=== PATIENT | male | born 1930 | race Caucasian/White ===

== ENCOUNTER 2018-01-24 13:39 | Day surgery (SDC) | payer MEDICARE, BC ==
[2018-01-23 11:31] LABS: BASOPHILS # (AUTO) 0.08 x10^3/uL (0-0.1); BASOPHILS % (AUTO) 1 % (0-1); EOSINOPHILS % (AUTO) 3 % (1-7); LYMPHOCYTES # (AUTO) 1.28 x10^3/uL (1-3.4); LYMPHOCYTES % (AUTO) 19 % (22-44); MD NO; MEAN CORPUSCULAR HEMOGLOBIN 28.7 pg (27.5-34.5); MEAN CORPUSCULAR HGB CONC 32.3 g/dL (33.2-36.2); MEAN CORPUSCULAR VOLUME 88.7 fL (81-97); MEAN PLATELET VOLUME 9.9 fL (7.4-10.4); MONOCYTES # (AUTO) 0.54 x10^3/uL (0.2-0.8); MONOCYTES % (AUTO) 8 % (2-9); NEUTROPHILS # (AUTO) 4.79 x10^3/uL (1.8-6.8); NEUTROPHILS % (AUTO) 70 % (42-75); PLATELET COUNT 170 x10^3/uL (130-400); RED BLOOD COUNT 4.28 x10^6/uL (4.38-5.82); RED CELL DISTRIBUTION WIDTH 14.1 % (9.4-14.8)
[2018-01-23 11:43] LABS: ALANINE AMINOTRANSFERASE 16 U/L (12-78); ALBUMIN 3.8 g/dL (3.4-5.0); ANION GAP 9 mmol/L (5-15); CALCIUM 8.5 mg/dL (8.5-10.1); CHLORIDE 112 mmol/L (98-107); CREATININE 3.87 mg/dL (0.7-1.3)
[2018-01-23 11:45] LABS: ALKALINE PHOSPHATASE 86 U/L (45-117); BILIRUBIN,TOTAL 0.5 mg/dL (0.2-1.0); TOTAL PROTEIN 6.8 g/dL (6.4-8.2)
[~2018-01-24] VITALS: Ht 182.9 cm; Wt 87.6 kg
[~2018-01-24 13:39] MED LIST: AMLO10TA6 PO; ASPI-496 PO; CALC0.25 PO; EZET10TA18 PO; IRON PO; LABE200T6 PO; LOSA50TA7 PO; SIMV20TA3 PO; SODI650T PO
[2018-01-24] MEDS ORDERED: LACTATED RINGERS 1,000 ML IV SCH (13:50)
[2018-01-24 14:10] VITALS: BP 163/87
[2018-01-24] MEDS ORDERED: PROTAMINE SULFATE 10 MG/ML, 5ML ONE (14:27)
[2018-01-24] MEDS ORDERED: HEPARIN 5,000 UNITS/ML, 1ML ONE (14:27)
[2018-01-24] MEDS ORDERED: SODIUM BICARBONATE 1 MEQ/ML, 50ML VIAL ONE (14:30)
[2018-01-24] MEDS ORDERED: HEPARIN 1,000 UNITS/ML, 10ML ONE (14:33)
[2018-01-24] MEDS ORDERED: LIDOCAINE-MPF 2% ,5ML ONE (14:33)
[2018-01-24] MEDS ORDERED: THROMBIN 20,000 UNIT VIAL TP ONE (14:40)
[2018-01-24] MEDS ORDERED: BUPIVACAINE/PF-EPI 0.5% 1:200K ONE (15:32)
[2018-01-24] MEDS ORDERED: LABETALOL 5MG/ML, 20ML IV PRN (18:00)
[2018-01-24] MEDS ORDERED: PROMETHAZINE 25 MG/ML, 1ML IM PRN ×2 (18:00)
[2018-01-24] MEDS ORDERED: FENTANYL PF 250 MCG/5ML ONE (18:00)
[2018-01-24] MEDS ORDERED: FENTANYL PF 100 MCG/2ML IV PRN (18:00)
[2018-01-24] MEDS ORDERED: PROMETHAZINE 12.5 MG SUPP PR PRN (18:00)
[2018-01-24] MEDS ORDERED: HYDROmorphone 2 MG/ML, 1ML IVPush PRN (18:00)
[2018-01-24] MEDS ORDERED: hydrALAzine 20 MG/ML, 1ML IV PRN (18:00)
[2018-01-24] MEDS ORDERED: ONDANSETRON ODT 8 MG PO PRN (18:00)
[2018-01-24] MEDS ORDERED: OXYcodone 5 MG/5 ML ORAL.SOL UDC PO PRN (18:00)
[2018-01-24] MEDS ORDERED: PROMETHAZINE 25 MG/ML, 1ML IV PRN (18:00)
[2018-01-24] MEDS ORDERED: PROMETHAZINE 25 MG SUPP PR PRN (18:00)
[2018-01-24] MEDS ORDERED: ONDANSETRON 2MG/ML, 2ML IV PRN (18:00)
[2018-01-24] MEDS ORDERED: PROPOFOL 10 MG/ML, 50ML ONE (18:01)
[2018-01-24] MEDS ORDERED: CEFAZOLIN 1,000 MG ONE (18:01)
[2018-01-24] MEDS ORDERED: PROPOFOL 50 ML ONE (18:02)
[2018-01-24] MEDS ORDERED: MIDAZOLAM 1 MG/ML, 2ML ONE (18:04)
[2018-01-24] MEDS ORDERED: HYDROcodone/APAP 5/325 TABLET PO PRN (19:30)
[2018-01-24] MEDS ORDERED: ONDANSETRON 2MG/ML, 2ML IVPush PRN (19:30)
[2018-01-24] MEDS ORDERED: SODIUM CHLORIDE FLUSH 10ML SYR IVF SCH (21:00)
== END 2018-01-24 21:30 | disposition home or self-care (01) ==
LOC: STAR 13:39 → 4NOR 20:19 → STAR 21:30
PROVIDERS: ATTEND Surgery
DX: I12.9 Hypertensive chronic kidney disease with stage 1 through stage 4 chronic kidney disease, or unspecified chronic kidney disease (principal); N18.4 Chronic kidney disease, stage 4 (severe); E78.5 Hyperlipidemia, unspecified; I25.10 Atherosclerotic heart disease of native coronary artery without angina pectoris; E87.5 Hyperkalemia; F17.210 Nicotine dependence, cigarettes, uncomplicated; K21.9 Gastro-esophageal reflux disease without esophagitis; Z79.82 Long term (current) use of aspirin; Z98.890 Other specified postprocedural states; Z79.899 Other long term (current) drug therapy; Z90.5 Acquired absence of kidney
CPT/HCPCS: 36415; 36821; 80053; 85025; 93005; J0690; J1644; J2250; J2704; J2720; J3010; G0378; J3490

== ENCOUNTER → 2018-03-10 | Outpatient (CLI) | payer MEDICARE, BC ==
[~2018-03-10] MED LIST changes: -AMLO10TA6 PO; +AMLO10TA8 PO; +LOSA50TA14 PO; -LOSA50TA7 PO
== END | disposition home or self-care (01) ==
LOC: CVU 08:19
PROVIDERS: ATTEND Internal Medicine Cardiovascular Disease
DX: R09.89 Other specified symptoms and signs involving the circulatory and respiratory systems (principal); E78.00 Pure hypercholesterolemia, unspecified
CPT/HCPCS: 93880

== ENCOUNTER 2018-06-02 13:28 | Inpatient (IN) | payer MEDICARE, BC ==
[~2018-06-02] VITALS: Ht 182.9 cm; Wt 83.3 kg
--- NOTE | 2018-06-02 14:27 | NUR ---
BIB BY AUGUSTO FROM [facility] WHERE HE PRESENTED FOR DIZZINESS/PALPITATION W/ STANDING. REPORTED NORMAL EKG AND TROPNIN, BNP OF 230. GIVEN 250ML OF NS AND 324 OF ASA BEFORE TRANSFER. ON ARRIVAL NO DIZZINESS/CP WITH STANDING-, VSS. EKG OBTAINED
[2018-06-02 15:01] LABS: TROPONIN I 0.082 ng/mL (0.000-0.045)
--- NOTE | 2018-06-02 15:20 | NUR ---
PATIENT CONTINUES TO DENIES DISCOMFORT INCLUDING PALPITATIONS/DIZZINESS. APPEARS WELL, VSS. LAUGHING W/ SPOUSE UPDATED ON POC (ADMIT) PATIENT VOIDED 200ML-SAMPLE LABELED AND SENT TO LAB
[2018-06-02 15:21] LABS: BASOPHILS # (AUTO) 0.03 x10^3/uL (0-0.1); BASOPHILS % (AUTO) 0 % (0-1); EOSINOPHILS # (AUTO) 0.07 x10^3/uL (0-0.4); EOSINOPHILS % (AUTO) 1 % (1-7); LYMPHOCYTES # (AUTO) 1.19 x10^3/uL (1-3.4); LYMPHOCYTES % (AUTO) 17 % (22-44); MD NO; MEAN CORPUSCULAR HEMOGLOBIN 28.6 pg (27.5-34.5); MEAN CORPUSCULAR HGB CONC 32.5 g/dL (33.2-36.2); MEAN CORPUSCULAR VOLUME 87.9 fL (81-97); MEAN PLATELET VOLUME 9.9 fL (7.4-10.4); MONOCYTES # (AUTO) 0.49 x10^3/uL (0.2-0.8); MONOCYTES % (AUTO) 7 % (2-9); NEUTROPHILS # (AUTO) 5.34 x10^3/uL (1.8-6.8); NEUTROPHILS % (AUTO) 75 % (42-75); PLATELET COUNT 171 x10^3/uL (130-400); RED BLOOD COUNT 3.97 x10^6/uL (4.38-5.82); RED CELL DISTRIBUTION WIDTH 13.1 % (9.4-14.8)
[2018-06-02] MEDS ORDERED: NITROGLYCERIN 0.4 MG BOTTLE (25 TABS) SL PRN (15:30)
[2018-06-02] MEDS ORDERED: ACETAMINOPHEN 325 MG TABLET PO PRN (15:30)
[2018-06-02 15:38] LABS: ALANINE AMINOTRANSFERASE 18 U/L (12-78); ALBUMIN 3.9 g/dL (3.4-5.0); ANION GAP 9 mmol/L (5-15); CALCIUM 8.9 mg/dL (8.5-10.1); CHLORIDE 104 mmol/L (98-107); CREATININE 5.41 mg/dL (0.7-1.3)
[2018-06-02 15:43] LABS: ALKALINE PHOSPHATASE 89 U/L (45-117); BILIRUBIN,TOTAL 0.4 mg/dL (0.2-1.0); CREATINE KINASE, TOTAL 67 U/L (39-308); TOTAL PROTEIN 6.8 g/dL (6.4-8.2)
[2018-06-02] MEDS: SODIUM BICARBONATE 650 MG TABLET PO SCH ×2 (16:00→20:08)
--- NOTE | 2018-06-02 16:57 | NUR ---
PATIENT RESTING COMFORTABLY ON GURNEY. DENIES COMPLAINTS/VSS ASKING WHEN A BED WILL BE AVAILABLE-THROUGHPUT RN TO ADDRESS UPDATED ON EFFORTS TO ATTEMPT TO GET HIM UPSTAIRS SHORTLY CALL [facility]YLE IN HAND/SIDE RAILS UP DINNER ORDERED
--- NOTE | 2018-06-02 17:14 | NUR ---
HOSPITAL BED/DINNER ORDERED FOR PATIENT
--- NOTE | 2018-06-02 18:13 | NUR ---
REPORT CALLED TO HUMAIRA RAUSCH PATIENT PLACED ON HOSPITAL BED EATING DINNER VITALS REMAIN STABLE ON LOADER UNLOADER AND CONTINUES TO DENY COMPLAINTS AT BEDSIDE UPDATED THEY ARE TO BE TRANSFERRED SHORTLY
[2018-06-02 19:11] VITALS: BP 134/64
[2018-06-02] MEDS: ATORVASTATIN 40 MG TABLET PO SCH (20:14)
[2018-06-02] MEDS ORDERED: LABETALOL 200 MG TABLET PO SCH (21:00)
[2018-06-02] MEDS ORDERED: HEPARIN 5,000 UNITS/ML, 1ML SQ SCH (21:00)
[2018-06-02 22:54] LABS: TROPONIN I 0.112 ng/mL (0.000-0.045)
[2018-06-02 22:58] LABS: CREATINE KINASE, TOTAL 63 U/L (39-308)
[2018-06-02] MEDS ORDERED: HEPARIN 5,000 UNITS/ML, 1ML IV PRN (23:30)
[2018-06-02] MEDS ORDERED: HEPARIN 25,000 UNITS/500ML PMX 500 ML IV PRN (23:30)
[2018-06-03 00:43] VITALS: BP 123/63
[2018-06-03] MEDS: SODIUM BICARBONATE 650 MG TABLET PO SCH ×4 (05:14→22:17)
[2018-06-03] MEDS: METOPROLOL TARTRATE 50 MG TABLET PO SCH (05:16)
[2018-06-03 06:57] LABS: CHOLESTEROL, TOTAL 114 mg/dL (140-239)
[2018-06-03 07:02] LABS: CHOL/HDL RATIO 2.2; HDL CHOL % 45 % (26-37); HDL CHOLESTEROL (DIRECT) 51 mg/dL (40-60); LDL CHOLESTEROL,CALCULATED 50 mg/dL (54-169); TRIGLYCERIDES 67 mg/dL (50-200); TROPONIN I 0.091 ng/mL (0.000-0.045); VLDL CHOLESTEROL 13 mg/dL (0-25)
[2018-06-03 08:55] VITALS: BP 149/70
[2018-06-03] MEDS: AMLODIPINE 10 MG TAB PO SCH (08:56)
[2018-06-03] MEDS: ISOSORBIDE MONONITRATE ER 30 MG TABLET PO SCH (08:56)
[2018-06-03] MEDS: LOSARTAN 50MG TABLET PO SCH (08:56)
[2018-06-03] MEDS: ASPIRIN 81 MG TABLET EC PO SCH (08:56)
[2018-06-03] MEDS ORDERED: REGADENOSON 0.4 MG/5 ML SYRINGE ONE (10:56)
[2018-06-03 12:45] VITALS: BP 113/61
[2018-06-03 19:32] VITALS: BP 109/63
[2018-06-03] MEDS: ATORVASTATIN 40 MG TABLET PO SCH (22:17)
[2018-06-04 02:25] VITALS: BP 116/65
[2018-06-04 05:06] LABS: ANION GAP 8 mmol/L (5-15); CALCIUM 8.4 mg/dL (8.5-10.1); CHLORIDE 101 mmol/L (98-107); CREATININE 4.19 mg/dL (0.7-1.3)
[2018-06-04 05:12] LABS: BASOPHILS # (AUTO) 0.05 x10^3/uL (0-0.1); BASOPHILS % (AUTO) 1 % (0-1); EOSINOPHILS # (AUTO) 0.13 x10^3/uL (0-0.4); EOSINOPHILS % (AUTO) 2 % (1-7); LYMPHOCYTES # (AUTO) 1.69 x10^3/uL (1-3.4); LYMPHOCYTES % (AUTO) 23 % (22-44); MD NO; MEAN CORPUSCULAR HEMOGLOBIN 28.9 pg (27.5-34.5); MEAN CORPUSCULAR HGB CONC 32.6 g/dL (33.2-36.2); MEAN CORPUSCULAR VOLUME 88.5 fL (81-97); MEAN PLATELET VOLUME 10.2 fL (7.4-10.4); MONOCYTES # (AUTO) 0.58 x10^3/uL (0.2-0.8); MONOCYTES % (AUTO) 8 % (2-9); NEUTROPHILS # (AUTO) 4.89 x10^3/uL (1.8-6.8); NEUTROPHILS % (AUTO) 67 % (42-75); PLATELET COUNT 132 x10^3/uL (130-400); RED BLOOD COUNT 3.63 x10^6/uL (4.38-5.82); RED CELL DISTRIBUTION WIDTH 12.9 % (9.4-14.8)
[2018-06-04 05:43] VITALS: BP 126/65
[2018-06-04] MEDS: SODIUM BICARBONATE 650 MG TABLET PO SCH (05:44)
[2018-06-04] MEDS: METOPROLOL TARTRATE 50 MG TABLET PO SCH (05:45)
[2018-06-04] MEDS ORDERED: SODIUM BICARBONATE 650 MG TABLET PO ONE (06:00)
[2018-06-04 09:00] VITALS: BP 100/65
[2018-06-04] MEDS ORDERED: HEPARIN 5,000 UNITS/ML, 1ML SQ SCH (09:00)
[2018-06-04] MEDS: AMLODIPINE 10 MG TAB PO SCH (09:34)
[2018-06-04] MEDS: ASPIRIN 81 MG TABLET EC PO SCH (09:35)
[2018-06-04] MEDS: LOSARTAN 50MG TABLET PO SCH (09:35)
[2018-06-04] MEDS: ISOSORBIDE MONONITRATE ER 30 MG TABLET PO SCH (09:35)
[2018-06-04] MEDS ORDERED: ISOS30TA8 PO (12:41)
[2018-06-04 14:16] VITALS: BP 100/58
[2018-06-04] MEDS ORDERED: SODIUM BICARBONATE 650 MG TABLET PO SCH (21:00)
[2018-06-05] MEDS ORDERED: SIMV20TA3 PO (19:28)
[2018-06-05] MEDS ORDERED: EZET10TA18 PO (19:28)
== END 2018-06-04 14:45 | disposition home or self-care (01) | DRG 682 ==
LOC: ED 14:13 → EDIP 15:05 → 5SO 18:30
PROVIDERS: ADMIT Internal Medicine Infectious Disease; ATTEND Internal Medicine Infectious Disease
PROC: 5A1D70Z Performance of Urinary Filtration, Intermittent, Less than 6 Hours Per Day (ICD-10-PCS; principal; 2018-06-03)
DX: I13.11 Hypertensive heart and chronic kidney disease without heart failure, with stage 5 chronic kidney disease, or end stage renal disease (principal); N18.6 End stage renal disease; C64.9 Malignant neoplasm of unspecified kidney, except renal pelvis; I25.118 Atherosclerotic heart disease of native coronary artery with other forms of angina pectoris; Z66 Do not resuscitate; Z96.659 Presence of unspecified artificial knee joint; D64.9 Anemia, unspecified; E78.5 Hyperlipidemia, unspecified; Z85.46 Personal history of malignant neoplasm of prostate; Z85.51 Personal history of malignant neoplasm of bladder; Z95.5 Presence of coronary angioplasty implant and graft; I25.2 Old myocardial infarction; Z82.49 Family history of ischemic heart disease and other diseases of the circulatory system; Z85.528 Personal history of other malignant neoplasm of kidney; Z87.891 Personal history of nicotine dependence; Z90.5 Acquired absence of kidney; Z99.2 Dependence on renal dialysis
CPT/HCPCS: 36415; 78452; 80048; 80053; 80061; 82550; 82553; 84484; 85025; 85520; 93005; 93017; 93306; 99285; G0378; J1644; J2785; A9502; C9898

== ENCOUNTER 2018-06-05 18:59 | Inpatient (IN) | payer MEDICARE, BC ==
[~2018-06-05] VITALS: Ht 182.9 cm; Wt 83.0 kg
[~2018-06-05 18:59] MED LIST changes: +ISOS30TA8 PO
--- NOTE | 2018-06-05 19:02 | NUR ---
Report from [facility].
--- NOTE | 2018-06-05 19:12 | NUR ---
87 Y/O MALE BIB AMBULANCE FROM [facility] IN [place] WITH C/O SYNCOPE. PER PATIENT "I WAS HERE FOR A STRESS TEST TUESDAY. I PASSED OUT THEN. I WAS HERE OVER THE WEEKEND AND JUST WENT HOME YESTERDAY. 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 BEDSIDE. NO C/O N/V/D, TRAUMA, CP, SOB. 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 PT HAS RIGHT CLAVICLE AREA EDEMA AND ERRYTHEMA.
--- NOTE | 2018-06-05 19:14 | NUR ---
BEDSIDE REPORT TO [facility].
[2018-06-05] MEDS ORDERED: EZET10TA18 PO (19:28)
[2018-06-05] MEDS ORDERED: SIMV20TA3 PO (19:28)
[2018-06-05 20:10] LABS: BASOPHILS # (AUTO) 0.02 x10^3/uL (0-0.1); BASOPHILS % (AUTO) 0 % (0-1); EOSINOPHILS # (AUTO) 0.08 x10^3/uL (0-0.4); EOSINOPHILS % (AUTO) 1 % (1-7); LYMPHOCYTES # (AUTO) 1.05 x10^3/uL (1-3.4); LYMPHOCYTES % (AUTO) 12 % (22-44); MD NO; MEAN CORPUSCULAR HEMOGLOBIN 28.5 pg (27.5-34.5); MEAN CORPUSCULAR HGB CONC 32.1 g/dL (33.2-36.2); MEAN CORPUSCULAR VOLUME 88.6 fL (81-97); MEAN PLATELET VOLUME 10.2 fL (7.4-10.4); MONOCYTES % (AUTO) 7 % (2-9); NEUTROPHILS # (AUTO) 6.76 x10^3/uL (1.8-6.8); NEUTROPHILS % (AUTO) 79 % (42-75); PLATELET COUNT 142 x10^3/uL (130-400); RED BLOOD COUNT 3.76 x10^6/uL (4.38-5.82); RED CELL DISTRIBUTION WIDTH 12.9 % (9.4-14.8)
--- NOTE | 2018-06-05 20:15 | NUR ---
Resting in [place]. VSS. Denies complaints. at bedside.
[2018-06-05 20:18] LABS: ALBUMIN 3.6 g/dL (3.4-5.0); ANION GAP 10 mmol/L (5-15); CALCIUM 8.8 mg/dL (8.5-10.1); CHLORIDE 101 mmol/L (98-107); CREATININE 5.69 mg/dL (0.7-1.3)
[2018-06-05 20:22] LABS: TROPONIN I 0.028 ng/mL (0.000-0.045)
--- NOTE | 2018-06-05 20:53 | NUR ---
Report to [facility].
[2018-06-05 21:48] VITALS: BP 156/63
[2018-06-05] MEDS ORDERED: BISACODYL 10 MG SUPP PR PRN (22:00)
[2018-06-05] MEDS ORDERED: ONDANSETRON ODT 4 MG PO PRN (22:00)
[2018-06-05] MEDS ORDERED: POLYETHYLENE GLYCOL 17 GM PACKET PO PRN (22:00)
[2018-06-05] MEDS: EZETIMIBE 10 MG TABLET PO SCH (23:09)
[2018-06-05] MEDS: SODIUM BICARBONATE 650 MG TABLET PO SCH (23:09)
[2018-06-05] MEDS: LOSARTAN 50MG TABLET PO SCH (23:09)
[2018-06-05] MEDS: SIMVASTATIN 20 MG TABLET PO SCH (23:09)
[2018-06-05] MEDS: SODIUM CHLORIDE FLUSH 10ML SYR IVF SCH (23:10)
[2018-06-05] MEDS: LABETALOL 200 MG TABLET PO SCH (23:11)
[2018-06-05] MEDS: ACETAMINOPHEN 325 MG TABLET PO PRN (23:20)
[2018-06-06] VITALS (9 sets, daily range): BP systolic 77–139; BP diastolic 42–65
[2018-06-06 05:53] LABS: BASOPHILS # (AUTO) 0.02 x10^3/uL (0-0.1); BASOPHILS % (AUTO) 0 % (0-1); EOSINOPHILS # (AUTO) 0.07 x10^3/uL (0-0.4); EOSINOPHILS % (AUTO) 1 % (1-7); LYMPHOCYTES # (AUTO) 1.66 x10^3/uL (1-3.4); LYMPHOCYTES % (AUTO) 18 % (22-44); MD NO; MEAN CORPUSCULAR HEMOGLOBIN 29.8 pg (27.5-34.5); MEAN CORPUSCULAR HGB CONC 33.7 g/dL (33.2-36.2); MEAN CORPUSCULAR VOLUME 88.4 fL (81-97); MEAN PLATELET VOLUME 10.3 fL (7.4-10.4); MONOCYTES # (AUTO) 0.85 x10^3/uL (0.2-0.8); MONOCYTES % (AUTO) 9 % (2-9); NEUTROPHILS # (AUTO) 6.53 x10^3/uL (1.8-6.8); NEUTROPHILS % (AUTO) 72 % (42-75); PLATELET COUNT 139 x10^3/uL (130-400); RED CELL DISTRIBUTION WIDTH 13.1 % (9.4-14.8)
[2018-06-06 06:01] LABS: ALANINE AMINOTRANSFERASE 16 U/L (12-78); ALBUMIN 3.5 g/dL (3.4-5.0); ANION GAP 11 mmol/L (5-15); CALCIUM 8.6 mg/dL (8.5-10.1); CHLORIDE 101 mmol/L (98-107); CREATININE 5.76 mg/dL (0.7-1.3)
[2018-06-06 06:03] LABS: ALKALINE PHOSPHATASE 81 U/L (45-117); BILIRUBIN,TOTAL 0.5 mg/dL (0.2-1.0); TOTAL PROTEIN 6.3 g/dL (6.4-8.2)
[2018-06-06] MEDS: LABETALOL 200 MG TABLET PO SCH ×2 (09:00→21:35)
[2018-06-06] MEDS ORDERED: AMLODIPINE 10 MG TAB PO SCH (09:00)
[2018-06-06] MEDS ORDERED: LOSARTAN 50MG TABLET PO SCH (09:00)
[2018-06-06] MEDS: SODIUM BICARBONATE 650 MG TABLET PO SCH ×2 (09:20→21:34)
[2018-06-06] MEDS: LOSARTAN 50MG TABLET PO SCH (09:21)
[2018-06-06] MEDS: SENNA/DOCUSATE TABLET PO SCH (09:21)
[2018-06-06] MEDS: CALCITRIOL 0.25 MCG CAPSULE PO SCH (09:21)
[2018-06-06] MEDS: SODIUM CHLORIDE FLUSH 10ML SYR IVF SCH ×2 (09:21→21:36)
[2018-06-06] MEDS: ASPIRIN 81 MG TABLET EC PO SCH (09:21)
[2018-06-06] MEDS: ACETAMINOPHEN 325 MG TABLET PO PRN ×2 (13:48→21:35)
[2018-06-06] MEDS: EZETIMIBE 10 MG TABLET PO SCH (21:34)
[2018-06-06] MEDS: SIMVASTATIN 20 MG TABLET PO SCH (21:35)
[2018-06-07] VITALS (9 sets, daily range): BP systolic 77–138; BP diastolic 48–78
[2018-06-07] MEDS: ACETAMINOPHEN 325 MG TABLET PO PRN (03:18)
[2018-06-07 06:25] LABS: ANION GAP 8 mmol/L (5-15); BASOPHILS # (AUTO) 0.03 x10^3/uL (0-0.1); BASOPHILS % (AUTO) 0 % (0-1); CALCIUM 8.4 mg/dL (8.5-10.1); CHLORIDE 101 mmol/L (98-107); EOSINOPHILS % (AUTO) 1 % (1-7); LYMPHOCYTES # (AUTO) 1.53 x10^3/uL (1-3.4); LYMPHOCYTES % (AUTO) 18 % (22-44); MD NO; MEAN CORPUSCULAR HEMOGLOBIN 30.2 pg (27.5-34.5); MEAN CORPUSCULAR HGB CONC 34.1 g/dL (33.2-36.2); MEAN CORPUSCULAR VOLUME 88.6 fL (81-97); MEAN PLATELET VOLUME 11.1 fL (7.4-10.4); MONOCYTES # (AUTO) 0.86 x10^3/uL (0.2-0.8); MONOCYTES % (AUTO) 10 % (2-9); NEUTROPHILS # (AUTO) 6.07 x10^3/uL (1.8-6.8); NEUTROPHILS % (AUTO) 71 % (42-75); PLATELET COUNT 120 x10^3/uL (130-400); RED BLOOD COUNT 3.47 x10^6/uL (4.38-5.82); RED CELL DISTRIBUTION WIDTH 13.1 % (9.4-14.8)
[2018-06-07 06:26] LABS: CREATININE 4.51 mg/dL (0.7-1.3)
[2018-06-07] MEDS: SODIUM CHLORIDE FLUSH 10ML SYR IVF SCH ×2 (09:00→21:50)
[2018-06-07] MEDS ORDERED: LOSARTAN 50MG TABLET PO SCH (09:00)
[2018-06-07] MEDS ORDERED: AMLODIPINE 10 MG TAB PO SCH (09:00)
[2018-06-07] MEDS: SENNA/DOCUSATE TABLET PO SCH (12:10)
[2018-06-07] MEDS: CALCITRIOL 0.25 MCG CAPSULE PO SCH (12:11)
[2018-06-07] MEDS: LABETALOL 200 MG TABLET PO SCH (12:11)
[2018-06-07] MEDS: ASPIRIN 81 MG TABLET EC PO SCH (12:11)
[2018-06-07] MEDS ORDERED: LABETALOL 100 MG TABLET PO SCH (16:00)
[2018-06-07] MEDS: MIDODRINE 5 MG TABLET PO SCH ×2 (16:18→21:49)
[2018-06-07] MEDS: SODIUM CHLORIDE 0.9% 500 ML IV SCH ×2 (16:30→21:51)
[2018-06-07] MEDS: METOPROLOL TARTRATE 25 MG TABLET PO SCH (17:09)
[2018-06-07] MEDS: EZETIMIBE 10 MG TABLET PO SCH (21:49)
[2018-06-07] MEDS: SIMVASTATIN 20 MG TABLET PO SCH (21:49)
[2018-06-08 01:31] VITALS: BP 153/61
[2018-06-08] MEDS: SODIUM CHLORIDE 0.9% 500 ML IV SCH (02:56)
[2018-06-08 05:59] VITALS: BP 147/67
[2018-06-08] MEDS: METOPROLOL TARTRATE 25 MG TABLET PO SCH (06:04)
[2018-06-08 06:49] VITALS: BP 156/68
[2018-06-08] MEDS ORDERED: LOSARTAN 25MG TABLET PO SCH (09:00)
[2018-06-08] MEDS ORDERED: GUAIFENESIN 200 MG TABLET PO SCH (09:00)
[2018-06-08] MEDS: CALCITRIOL 0.25 MCG CAPSULE PO SCH (10:00)
[2018-06-08] MEDS: SENNA/DOCUSATE TABLET PO SCH (10:00)
[2018-06-08] MEDS: ASPIRIN 81 MG TABLET EC PO SCH (10:00)
[2018-06-08] MEDS: HEPARIN 5,000 UNITS/ML, 1ML SQ SCH ×2 (10:00→17:00)
[2018-06-08] MEDS: SODIUM CHLORIDE FLUSH 10ML SYR IVF SCH (10:00)
[2018-06-08 13:23] VITALS: BP 133/68
[2018-06-08 13:24] VITALS: BP_SYST 121; BP_SYST 122; BP_DIAS 55; BP_DIAS 56
[2018-06-08] MEDS ORDERED: CARV3.1212 PO (14:41)
[2018-06-08] MEDS ORDERED: CARVEDILOL 3.125 MG TABLET PO SCH (18:00)
== END 2018-06-08 17:10 | disposition home or self-care (01) | DRG 73 ==
LOC: ED 19:47 → EDIP 20:22 → 4EST 21:36 → DCLOUNGE 06-08 17:05
PROVIDERS: ADMIT Family Medicine; ATTEND Family Medicine
PROC: 5A1D70Z Performance of Urinary Filtration, Intermittent, Less than 6 Hours Per Day (ICD-10-PCS; principal; 2018-06-06)
PROC: 5A1D70Z Performance of Urinary Filtration, Intermittent, Less than 6 Hours Per Day (ICD-10-PCS; 2018-06-07)
DX: G90.8 Other disorders of autonomic nervous system (principal); N18.6 End stage renal disease; E44.1 Mild protein-calorie malnutrition; I13.11 Hypertensive heart and chronic kidney disease without heart failure, with stage 5 chronic kidney disease, or end stage renal disease; I95.1 Orthostatic hypotension; Z66 Do not resuscitate; D63.1 Anemia in chronic kidney disease; D69.6 Thrombocytopenia, unspecified; E78.5 Hyperlipidemia, unspecified; I44.0 Atrioventricular block, first degree; I25.10 Atherosclerotic heart disease of native coronary artery without angina pectoris; S01.01XA Laceration without foreign body of scalp, initial encounter; I95.3 Hypotension of hemodialysis; N25.0 Renal osteodystrophy; S09.90XA Unspecified injury of head, initial encounter; W18.39XA Other fall on same level, initial encounter; Y93.89 Activity, other specified; Y92.89 Other specified places as the place of occurrence of the external cause; Y99.8 Other external cause status; Z85.46 Personal history of malignant neoplasm of prostate; Z85.51 Personal history of malignant neoplasm of bladder; Z85.528 Personal history of other malignant neoplasm of kidney; Z87.891 Personal history of nicotine dependence; Z90.5 Acquired absence of kidney; Z95.5 Presence of coronary angioplasty implant and graft; Z99.2 Dependence on renal dialysis; Z68.24 Body mass index [BMI] 24.0-24.9, adult
CPT/HCPCS: 36415; 80048; 80053; 82040; 82533; 84484; 85025; 86704; 86706; 87340; 99285; G0378; J1644; J7040